=== PATIENT | male | born 1975 | race Caucasian/White ===

== ENCOUNTER 2016-10-29 03:06 | Emergency (ER) | payer MEDICAID, OTHER ==
[~2016-10-29] VITALS: Ht 170.2 cm; Wt 74.5 kg
[2016-10-29 03:16] VITALS: Ht 170.2 cm; Wt 74.5 kg
[2016-10-29] MEDS ORDERED: KETOROLAC 30 MG INJ IM STA (04:43)
[2016-10-29] MEDS ORDERED: HYDR-906 PO (04:45)
[2016-10-29] MEDS ORDERED: IBUP-1542 PO (04:45)
--- NOTE | 2016-10-29 04:49 | ERD ---
ER Documentation Chief Complaint Date/Time DATE: 10/29/16 TIME: 04:46 Chief Complaint left knee pain x 3 days, denies injury HPI Patient is a 41-year-old male who presents to the emergency department with left knee pain x 3 days. Patient states that the pain has been getting gradually worse. Patient states he is having difficulty bending and walking on affected extremity. 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 Patient states current pain level is a 9 out of 10. He states his pain is constant throbbing in nature. Patient denies icing affected extremity. Patient denies taking any pain medication. Patient denies any fever, chills. Patient denies any falls or trauma. Patient denies any previous injuries to the affected extremity. ROS All systems reviewed and are negative except as per history of present illness. Medications Home Meds Active Scripts Hydrocodone/Acetaminophen ([place] 5-325 Tablet) 1 Each Tablet, 1 TAB PO Q6H Y for PAIN, #7 TAB Prov:ERAN SWANSON PA-C 10/29/16 Ibuprofen* (Ibuprofen*) 600 Mg Tablet, 600 MG PO Q6, #30 TAB Prov:ERAN SWANSON PA-C 10/29/16 Allergies Allergies: Coded Allergies: No Known Allergy (Unverified , 10/29/16) PMhx/Soc Medical and Surgical Hx: pt denies Medical Hx, pt denies Surgical Hx History of Surgery: No Anesthesia Reaction: No Hx Neurological Disorder: No Hx Respiratory Disorders: No Hx Cardiac Disorders: No Hx Psychiatric Problems: No Hx Miscellaneous Medical Probl: No Hx Alcohol Use: No Hx Substance Use: No Hx Tobacco Use: No Smoking Status: Never smoker FmHx Family History: No diabetes Physical Exam Vitals Vital Signs Date Time Temp Pulse Resp B/P Pulse Ox O2 Delivery O2 Flow Rate FiO2 10/29/16 03:16 98.2 77 20 140/84 99 Physical Exam GENERAL: Well-developed, well-nourished male. Appears in no acute distress. HEAD: Normocephalic, atraumatic. EYES: Pupils are equally reactive bilaterally. EOMs grossly intact. No conjunctival erythema. ENT: Moist mucous membranes. No uvula deviation. No kissing tonsils. NECK: Supple. No lymphadenopathy or thyromegaly. No meningismus. LUNG: Clear to auscultation bilaterally. No rhonchi, wheezing, rales or coarse breath sounds. HEART: Regular rate and rhythm. No murmurs, rubs or gallops. EXTREMITIES: Equal pulses bilaterally. No peripheral clubbing, cyanosis or edema. No unilateral leg swelling. NEUROLOGIC: Alert and oriented. Moving all four extremities without any difficulty. Normal speech. Steady gait. SKIN: Normal color. Warm and dry. No rashes or lesions. LEFT KNEE: No deformity, erythema, ecchymosis. Minimal swelling to anterior knee. No warmth or erythema. Skin intact. Full ROM. No crepitus. Tender to palpation of anterior and medial knee. No valgus/varus instability. Sensation intact to light touch. Neurovascularly intact. (Able to plantarflex, dorsiflex, tonia foot, invert foot, raise big toe.) 2+ DP and DT pulses. Results 24 hrs Current Medications Medications (Trade) Dose Ordered Sig/[place] Route PRN Reason Start Time Stop Time Status Last Admin Dose Admin Ketorolac Tromethamine (Toradol) 30 mg ONCE STAT IM 10/29/16 04:43 10/29/16 04:45 DC 10/29/16 05:00 Procedures/MDM ED COURSE: The patient was stable throughout ED course. I kept the patient and/or family informed of laboratory and diagnostic imaging results throughout the ED course. DIAGNOSTIC IMAGING: Read by radiologist. DIAGNOSTIC IMAGING REPORT Patient: AROLDO STALLWORTH : 1975 Age: 41 Sex: M MR #: [id number] DOS: 10/29/16 0443 Ordering MD: ERAN SWANSON PA-C Location: [facility] Room/Bed: PROCEDURE: Left knee. CLINICAL INDICATION: Pain. TECHNIQUE: Three views including AP, lateral and oblique views of the left knee were obtained. The images reviewed on a PACS workstation. COMPARISON: None. FINDINGS: There is no fracture, dislocation or bone destruction. There is no significant joint space narrowing. There is a small joint effusion. Bone mineralization is within normal limits. There is no radiopaque foreign body or abnormal calcification. IMPRESSION: No evidence of fracture. Small joint effusion. .Rowdy Larkin, MD, MD Date Time Electronically viewed and signed by .Rowdy Larkin MD, MD on 10/29/2016 06:19 .T/ CC: ERAN SWANSON PA-C MEDICATIONS GIVEN: Toradol IM Patient tolerated medication well with no adverse reactions. Patient reported improvement in pain. MEDICAL DECISION MAKING: This is a 41-year-old male who presents with left knee pain 3 days. Patient denied any trauma or falls. Vital signs were reviewed. Patient was afebrile. Xrays showed No evidence of fracture. Small joint effusion. Given these findings , the patients presentation is most consistent with knee sprain. I have a much lower clinical concern for femur fracture, patella fracture, tibial plateau fracture, septic joint, gout, popliteal cyst, osteoarthritis, osteomyelitis, DVT or compartment syndrome. At this time, unable to rule out any meniscus and knee ligament injuries. PRESCRIPTIONS: Ibuprofen, [place] DISCHARGE: At this time, patient is stable for discharge and outpatient management. RICE therapy and ROM exercises were advised to avoid stiffness. I have instructed the patient to follow-up with his/her primary care physician in 1-2 days. I have discussed with the patient the possibility of needing to see an environmental management specialist for further workup and imaging if the pain persists. I have instructed the patient to promptly return to the ER for any new or worsening symptoms including increased pain, swelling, redness, warmth or fever. The patient and/or family expressed understanding of and agreement with this plan. All questions were answered. Home care instructions were provided. Departure Diagnosis: Primary Impression: Knee pain Laterality: left Chronicity: acute Qualified Code: M25.562 - Acute pain of left knee Condition: Stable Patient Instructions: Knee Pain, Uncertain Cause Additional Instructions: Take pain medication as needed. Use ice/warm compresses to affected extremity. Unable to rule out any ligamentous or tendon injuries at this time. Patient will need to see an environmental management specialist and/or obtain MRI imaging if pain persists. Call your primary care doctor TOMORROW for an appointment during the next 1-2 days.See the doctor sooner or return here if your condition worsens before your appointment time. ERAN SWANSON PA-C Oct 29, 2016 04:49 ERAN SWANSON PA-C Oct 29, 2016 04:49
--- NOTE | 2016-10-29 06:19 | RADRPT ---
PROCEDURE: Left knee. CLINICAL INDICATION: Pain. TECHNIQUE: Three views including AP, lateral and oblique views of the left knee were obtained. T he images reviewed on a PACS workstation. COMPARISON: None. FINDINGS: There is no fracture, dislocation or bone destruction. There is no significant joint space narrowin g. There is a small joint effusion. Bone mineralization is within normal limits. There is no radi opaque foreign body or abnormal calcification. IMPRESSION: No evidence of fracture. Small joint effusion. .Rowdy Larkin MD, Date Time Electronically viewed and signed by .Rowdy Larkin MD, on 10/29/2016 06:19 .T/
== END 2016-10-29 06:35 | disposition home or self-care (01) ==
LOC: FTE 03:06
DX: M25.562 Pain in left knee (principal)
CPT/HCPCS: 73562; J1885; 96372

== ENCOUNTER 2017-08-18 09:30 | Emergency (ER) | payer MEDICAID ==
[~2017-08-18] VITALS: Wt 67.8 kg
[~2017-08-18 09:30] MED LIST: HYDR-906 PO; IBUP-1542 PO
--- NOTE | 2017-08-18 10:09 | ERD ---
ER Documentation Chief Complaint Chief Complaint REDNESS ON RIGHT LOWER ABD, ONSET 1 DAY HPI 41-year-old male who presents emergency department for redness to his mid abdomen. Stated that he had a spider bite to this area. Reports that the area is itchy and painful. Denies headache, dizziness, blurred vision, neck pain, throat pain, difficulty swallowing, shoulder pain, chest pain, back pain, abdominal pain, nausea, vomiting, constipation, diarrhea, loss of bowel or bladder control, changes in bowel or bladder habits, difficulty walking, recent antibiotic use in the last 3 months, fever, chills. No known drug allergies. No past medical history of hypertension. No surgical history. Does not take any prescription medication at home. 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 Denies smoking, use of alcoholic beverages, use of illegal drugs. ROS All systems reviewed and are negative except as per history of present illness. Medications Home Meds Active Scripts Diphenhydramine Hcl* (Benadryl*) 25 Mg Cap, 25 MG PO Q8 Y for ITCHING/RASH, #30 TAB Prov:PASILABANJORGEAR F 08/18/17 Ibuprofen* (Motrin*) 800 Mg Tab, 800 MG PO Q8 Y for PAIN AND OR ELEVATED TEMP, # 30 TAB Prov:ARMANDOILABANJORGEAR F 08/18/17 Cephalexin* (Keflex*) 500 Mg Capsule, 500 MG PO TID for 7 Days, CAP Prov:PASILABAN,KLAR F 08/18/17 Hydrocodone/Acetaminophen ([place] 5-325 Tablet) 1 Each Tablet, 1 TAB PO Q6H Y for PAIN, #7 TAB Prov:ERAN SWANSON PA-C 10/29/16 Ibuprofen* (Ibuprofen*) 600 Mg Tablet, 600 MG PO Q6, #30 TAB Prov:ERAN SWANSON PA-C 10/29/16 Allergies Allergies: Coded Allergies: No Known Allergy (Unverified , 08/18/17) PMhx/Soc History of Surgery: No Anesthesia Reaction: No Hx Neurological Disorder: No Hx Respiratory Disorders: No Hx Cardiac Disorders: No Hx Psychiatric Problems: No Hx Miscellaneous Medical Probl: No Hx Alcohol Use: No Hx Substance Use: No Hx Tobacco Use: No Physical Exam Vitals Vital Signs Date Time Temp Pulse Resp B/P Pulse Ox O2 Delivery O2 Flow Rate FiO2 08/18/17 09:36 97.6 91 17 133/83 96 Physical Exam Const: [] Head: Atraumatic Eyes: Normal Conjunctiva ENT: Normal External Ears, Nose and Mouth. Neck: Full range of motion..~ No meningismus. Resp: Clear to auscultation bilaterally Cardio: Regular rate and rhythm, no murmurs Abd: Soft, non tender, non distended. Normal bowel sounds. No abdominal tenderness. No CVA tenderness. Skin: Redness to mid abdomen measuring approximately 2.2 cm in diameter. No induration. Warm to touch. No vesicular lesions. Back: No midline or flank tenderness Ext: No cyanosis, or edema Neur: Awake and alert Psych: Normal Mood and Affect Procedures/MDM 41-year-old male who presents emergency department for redness to his mid abdomen. Stated that he had a spider bite to this area. Reports that the area is itchy and painful. Denies headache, dizziness, blurred vision, neck pain, throat pain, difficulty swallowing, shoulder pain, chest pain, back pain, abdominal pain, nausea, vomiting, constipation, diarrhea, loss of bowel or bladder control, changes in bowel or bladder habits, difficulty walking, recent antibiotic use in the last 3 months, fever, chills. No known drug allergies. No past medical history of hypertension. No surgical history. Does not take any prescription medication at home. 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 Denies smoking, use of alcoholic beverages, use of illegal drugs. Physical exam: Redness to mid abdomen measuring approximately 2.2 cm in diameter. No induration. Warm to touch. No vesicular lesions. No abdominal tenderness. No CVA tenderness. No vesicular lesions. Disease process was explained to the patient. He verbalized understanding and agreed with the plan of care. Differential diagnosis: Cellulitis Final diagnosis: Cellulitis secondary to spider bite. Reevaluation: Denies headache, dizziness, blurry vision, neck pain, shoulder pain, chest pain, back pain, abdominal pain, nausea, vomiting. No episode of emesis in the emergency department. Alert and oriented 4. Speaks full and clear sentences. Respirations even and unlabored. Lung sounds clear to auscultation. Active bowel sounds. There is no right upper/right lower/ epigastric/left upper/left lower abdominal tenderness and light and deep palpation. Negative on Rovsings sign. Negative Michelle sign. Able to jump 5 times without developing right-sided abdominal pain. No peritoneal signs. Ambulatory with steady gait. No neurovascular deficits. No neurological deficits. Prescription: Keflex. Motrin. Benadryl. Follow-up with PCP in the next 24-48 hours. Come back here in the emergency department for any new symptoms or any worsening of symptoms. All questions and concerns are answered. Patient verbalized understanding and agreed with the plan of care. Hemodynamically stable on discharge. Departure Diagnosis: Primary Impression: Insect bite Additional Impression: Cellulitis Condition: Stable Additional Instructions: Follow-up with PCP in the next 24-48 hours. Come back here in the emergency department for any new symptoms or any worsening of symptoms. All questions and concerns are answered. Patient verbalized understanding and agreed with the plan of care. LUIS ALBERTO RESENDIZ Aug 18, 2017 10:09
[2017-08-18] MEDS ORDERED: CEPH-443 PO (10:14)
[2017-08-18] MEDS ORDERED: IBUP800T25 PO (10:14)
[2017-08-18] MEDS ORDERED: BEN25 PO (10:14)
== END 2017-08-18 10:41 | disposition home or self-care (01) ==
LOC: FTE 09:30
DX: S30.861A Insect bite (nonvenomous) of abdominal wall, initial encounter (principal); L03.311 Cellulitis of abdominal wall; W57.XXXA Bitten or stung by nonvenomous insect and other nonvenomous arthropods, initial encounter; Y92.9 Unspecified place or not applicable
CPT/HCPCS: 99283

== ENCOUNTER 2017-10-07 17:58 | Emergency (ER) | END 2017-10-07 18:40 | disposition home or self-care (01) ==